=== PATIENT | male | born 1970 | race Caucasian/White ===

== ENCOUNTER 2016-12-24 10:00 | Emergency (ER) | payer OTHER, SELFPAY ==
[2016-12-24] MEDS ORDERED: Sodium Chloride 0.9% 10 ML Syringe FLUSH PRN (10:29)
[2016-12-24 10:49] VITALS: BP 111/63
--- NOTE | 2016-12-24 11:28 | PCM.CONS ---
<Rustam Ashton - Last Filed: 12/24/16 11:55> H&P History of Present Illness - History of Present Illness Initial Comments - Free Text/Narative: History of present illness: [46-year-old male who was working on his vehicle yesterday at about noon and suddenly developed palpitations. 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 Last evening he came in and was continuing to have palpitations and spoke with Dr. Beckman checked his pulse and determined that he was in A. fib. He had a high deductible and so it was suggested that he could go home and come back in the morning if he continued to have palpitations. The hope was that he would spontaneously convert but he did not and so presented here today for cardioversion. He's asymptomatic with this other than the palpitations in that he's not having any chest pain or shortness of breath or chest tightening.] Review of systems: As per history of present illness and below otherwise all systems reviewed and negative. Past medical history: As per history of present illness and as reviewed below otherwise noncontributory. Surgical history: As per history of present illness and as reviewed below otherwise noncontributory. Social history: No reported history of drug or alcohol abuse. Family history: As per history of present illness and as reviewed below otherwise noncontributory. Physical exam: HEENT: Atraumatic, normocephalic, pupils reactive, negative for conjunctival pallor or scleral icterus, mucous membranes moist, throat clear, neck supple, nontender, trachea midline. Lungs: Clear to auscultation, breath sounds equal bilaterally, chest nontender. Heart: S1S2, regular, negative for clicks, rubs, or JVD. Abdomen: Soft, nondistended, nontender. Negative for masses or hepatosplenomegaly. Negative for costovertebral tenderness. Pelvis: Stable nontender. Genitourinary: Deferred. Rectal: Deferred. Extremities: Atraumatic, negative for cords or calf pain. Neurovascular unremarkable. Neuro: Awake, alert, oriented. Cranial nerves II through XII unremarkable. Cerebellum unremarkable. Motor and sensory unremarkable throughout. Exam nonfocal. Diagnostics: [CBC basic metabolic panel and TSH were ordered on him in addition to an EKG demonstrating his A. fib with rapid response] Therapeutics: [Dr. Joseph was consulted and came in and did cardiovert him. ] Impression: [A. fib with rapid response] Plan: [Dr. Joseph is given him his discharge instructions.] Definitive disposition and diagnosis as appropriate pending reevaluation and review of above. - Related Data Allergies/Adverse Reactions: Allergies Allergy/AdvReac Type Severity Reaction Status Date / Time No Known Allergies Allergy Verified 12/24/16 10:17 Home Medications: Home Meds NK [No Known Home Meds] 12/24/16 [History] H&P Review of Systems - Review of Systems: Review Of Systems: ROS reveals no pertinent complaints other than HPI. Exam - Vital Signs Vital Signs: Last Vital Signs Temp 36.6 C 12/24/16 10:46 Pulse 116 H 12/24/16 10:46 Resp 16 12/24/16 10:23 BP 111/63 12/24/16 10:46 Pulse Ox 95 12/24/16 10:46 - Patient Data Lab Results Last 24 hrs: Laboratory Results - last 24 hr 12/24/16 12/24/16 12/24/16 Range/Units 10:30 10:32 10:32 WBC 7.9 (4.5-11.0) K/uL RBC 5.54 (4.30-5.90) M/uL Hgb 16.7 H (12.0-15.0) g/dL Hct 49.1 (40.0-54.0) % MCV 89 (80-98) fL MCH 30 (27-31) pg MCHC 34 (32-36) % Plt Count 247 (150-400) K/uL Neut % (Auto) 56 (36-66) % Lymph % (Auto) 29 (24-44) % Laurens % (Auto) 9 H (2-6) % Eos % (Auto) 4 (2-4) % Baso % (Auto) 2 H (0-1) % Sodium 141 (140-148) mmol/L Potassium 4.3 (3.6-5.2) mmol/L Chloride 107 (100-108) mmol/L Carbon Dioxide 29 (21-32) mmol/L Anion Gap 5.5 (5.0-14.0) mmol/L BUN 17 (7-18) mg/dL Creatinine 1.3 (0.8-1.3) mg/dL Est Cr Clr Drug Dosing 84.31 mL/min Estimated GFR (MDRD) 60 (>60) Glucose 96 (74-106) mg/dL Calcium 9.0 (8.5-10.1) mg/dL Troponin I (0.000-0.056) ng/mL Free T4 1.01 (0.76-1.46) ng/dL TSH, Ultra Sensitive (0.358-3.740) uIU/mL 12/24/16 12/24/16 Range/Units 10:32 10:32 WBC (4.5-11.0) K/uL RBC (4.30-5.90) M/uL Hgb (12.0-15.0) g/dL Hct (40.0-54.0) % MCV (80-98) fL MCH (27-31) pg MCHC (32-36) % Plt Count (150-400) K/uL Neut % (Auto) (36-66) % Lymph % (Auto) (24-44) % Laurens % (Auto) (2-6) % Eos % (Auto) (2-4) % Baso % (Auto) (0-1) % Sodium (140-148) mmol/L Potassium (3.6-5.2) mmol/L Chloride (100-108) mmol/L Carbon Dioxide (21-32) mmol/L Anion Gap (5.0-14.0) mmol/L BUN (7-18) mg/dL Creatinine (0.8-1.3) mg/dL Est Cr Clr Drug Dosing mL/min Estimated GFR (MDRD) (>60) Glucose (74-106) mg/dL Calcium (8.5-10.1) mg/dL Troponin I < 0.017 (0.000-0.056) ng/mL Free T4 (0.76-1.46) ng/dL TSH, Ultra Sensitive 3.951 H (0.358-3.740) uIU/mL Result Diagrams: 12/24/16 10:32 12/24/16 10:32 Consult PN Assessment/Plan My Orders last 24 hours: My Active Orders 12/24/16 10:18 EKG 12 Lead [EK] Stat 12/24/16 10:19 EKG Documentation Completion [RC] ASDIRECTED 12/24/16 10:29 Sodium Chloride 0.9% [Saline Flush] 10 ml FLUSH ASDIRECTED PRN Saline Lock Insert [OM.PC] Stat <Magdaleno Joseph - Last Filed: 12/25/16 17:33> H&P History of Present Illness - General Date of Service: 12/24/16 Source of Information: Patient, Family, Provider History Limitations: Reports: No Limitations Denies Pain Score (Numeric/FACES): 0 Past Medical History HEENT History: Reports: Impaired Vision Dermatologic History: Reports: Other (See Below) Other Dermatologic History: Cheat and back rash - Infectious Disease History Infectious Disease History: Reports: Chicken Pox Social & Family History - Family History Cardiac: Reports: Afib (father) - Tobacco Use Smoking Status *Q: Never Smoker Second Hand Smoke Exposure: No - Caffeine Use Caffeine Use: Reports: Coffee, Soda - Alcohol Use Alcohol Use History: No - Recreational Drug Use Recreational Drug Use: No H&P Review of Systems - Review of Systems: Review Of Systems: See Below Free Text/Narrative: A complete 12 point review of systems was obtained. Pertinent positives and negatives are noted in the history of present illness. All other systems were reviewed and were negative except as noted. Exam - Exam Exam: See Below - Vital Signs Vital Signs: Last Vital Signs Temp 36.6 C 12/24/16 10:46 Pulse 116 H 12/24/16 10:46 Resp 16 12/24/16 10:23 BP 111/63 12/24/16 10:46 Pulse Ox 95 12/24/16 10:46 Weight: 97.522 kg - Exam Quality Assessment: No: Supplemental Oxygen General: Alert, Oriented, Cooperative. No: Mild Distress HEENT: Conjunctiva Clear, Mucosa Moist & [place]. No: Scleral Icterus Neck: Supple, Trachea Midline. No: Lymphadenopathy, Thyromegaly Lungs: Clear to Auscultation, Normal Respiratory Effort Cardiovascular: Irregular Rhythm, Tachycardia. No: Systolic Murmur GI/Abdominal Exam: Normal Bowel Sounds, Soft, Non-Tender, No Distention Back Exam: Normal Inspection, Full Range of Motion Extremities: Normal Inspection, No Pedal Edema. No: Increased Warmth Peripheral Pulses: 2+: Dorsalis Pedis (L), Dorsalis Pedis (R) Skin: Warm, Dry, Intact Neuro Extensive - Mental Status: Alert, Oriented x3, Nl Response to Commands Neuro Extensive - Motor, Sensory, Reflexes: CN II-XII Intact. No: Dysarthria, Abnormal Motor, Tremor Psychiatric: Alert, Normal Affect - Patient Data Lab Results Last 24 hrs: Laboratory Results - last 24 hr 12/24/16 12/24/16 12/24/16 Range/Units 10:32 10:32 10:32 WBC 7.9 (4.5-11.0) K/uL RBC 5.54 (4.30-5.90) M/uL Hgb 16.7 H (12.0-15.0) g/dL Hct 49.1 (40.0-54.0) % MCV 89 (80-98) fL MCH 30 (27-31) pg MCHC 34 (32-36) % Plt Count 247 (150-400) K/uL Neut % (Auto) 56 (36-66) % Lymph % (Auto) 29 (24-44) % Laurens % (Auto) 9 H (2-6) % Eos % (Auto) 4 (2-4) % Baso % (Auto) 2 H (0-1) % Sodium 141 (140-148) mmol/L Potassium 4.3 (3.6-5.2) mmol/L Chloride 107 (100-108) mmol/L Carbon Dioxide 29 (21-32) mmol/L Anion Gap 5.5 (5.0-14.0) mmol/L BUN 17 (7-18) mg/dL Creatinine 1.3 (0.8-1.3) mg/dL Est Cr Clr Drug Dosing 84.31 mL/min Estimated GFR (MDRD) 60 (>60) Glucose 96 (74-106) mg/dL Calcium 9.0 (8.5-10.1) mg/dL Troponin I (0.000-0.056) ng/mL TSH, Ultra Sensitive 3.951 H (0.358-3.740) uIU/mL 12/24/16 Range/Units 10:32 WBC (4.5-11.0) K/uL RBC (4.30-5.90) M/uL Hgb (12.0-15.0) g/dL Hct (40.0-54.0) % MCV (80-98) fL MCH (27-31) pg MCHC (32-36) % Plt Count (150-400) K/uL Neut % (Auto) (36-66) % Lymph % (Auto) (24-44) % Laurens % (Auto) (2-6) % Eos % (Auto) (2-4) % Baso % (Auto) (0-1) % Sodium (140-148) mmol/L Potassium (3.6-5.2) mmol/L Chloride (100-108) mmol/L Carbon Dioxide (21-32) mmol/L Anion Gap (5.0-14.0) mmol/L BUN (7-18) mg/dL Creatinine (0.8-1.3) mg/dL Est Cr Clr Drug Dosing mL/min Estimated GFR (MDRD) (>60) Glucose (74-106) mg/dL Calcium (8.5-10.1) mg/dL Troponin I < 0.017 (0.000-0.056) ng/mL TSH, Ultra Sensitive (0.358-3.740) uIU/mL Result Diagrams: 12/24/16 10:32 12/24/16 10:32 Imaging Impressions Last 24 hrs: EKG - images personally reviewed - afib with HR 144, normal axis, no ischemic changes Consult PN Assessment/Plan (1) Atrial fibrillation with rapid ventricular response SNOMED Code(s): 703705380593975 Code(s): I48.91 - UNSPECIFIED ATRIAL FIBRILLATION Problem List Initiated/Reviewed/Updated: Yes My Orders last 24 hours: My Active Orders 12/24/16 11:23 T4 FREE [CHEM] Routine Plan: Patient presented with paroxysmal atrial fibrillation with rapid ventricular response. This was his first episode. No obvious cause based on history or laboratory studies. He was cardioverted in the emergency room and returned to normal sinus rhythm. Echocardiogram as an outpatient as planned. He will be following up with primary care. Magdaleno Joseph M.D. Requesting Provider: Dr Ashton Date Consult Requested: 12/24/16 Reason for Consult: afib with RVR Patient History Reviewed: Yes Admission H&P Reviewed: No Notified Requestor: Yes Time Spent (in minutes): 45
[2016-12-24] MEDS ORDERED: Propofol 200 MG/20 ML SDV ONE (11:29)
--- NOTE | 2016-12-24 11:30 | PCM.PRNOTE ---
- Free Text/Narrative Note: Date of service: 12/24/2016 Proposed procedure: Synchronized cardioversion Preprocedure diagnosis: Atrial fibrillation with rapid ventricular response Post procedure diagnosis: Atrial fibrillation with rapid ventricular response Indication for procedure: Khanh was evaluated today regarding atrial fibrillation/atrial flutter with symptoms and/or rapid ventricular response. Synchronized cardioversion was recommended as a primary treatment with onset of symptos <24 hours ago. Description of the procedure: [facility] is currently [facility]. We have reviewed the potential risks of electrical cardioversion including but not limited to: Superficial skin valverde, ineffective treatment, other arrhythmias, reaction to anesthesia medications or potentially asystole. The benefits of the procedure have also been reviewed. At this time the patient wishes to proceed with electrical cardioversion. All necessary pre-procedure information and paperwork has been provided and completed, respectively. The patient was connected to cardioversion pads and monitoring equipment per protocol. Prior to the procedure, a timeout was held with nursing and anesthesia present to confirm the right patient and right procedure. Once appropriate anesthesia was applied the machine was charged to 150 Joules and an electrical shock was applied. The patient was successfully converted to normal sinus rhythm and this was confirmed with a post procedure EKG. They will remain in their current location until anesthesia has dissipated and the patient is more awake and alert. They will then be discharged to home once medically stable. Anticoagulation should be continued for at least one month post cardioversion. There were no immediate complications noted from the procedure. Magdaleno Joseph M.D.
--- NOTE | 2017-01-21 08:54 | ER ---
DATE OF SERVICE: 12/24/2016 HISTORY: This is a 46-year-old male, who had presented to actually just to the manager front to talk to his and was found to be in AFib. Dr. Beckman spoke to him out in the registration area and because of their high deductible they did not want to be seen in the ER, but just on exam was noted to be in AFib. Dr. Beckman suggested they go home and then return in the morning if he had not spontaneously converted. He just went into AFib and so the 72-hour window was opened to us to have this plan. He presented to the ER in the morning still in AFib with a rapid response and was asymptomatic. No chest pain or shortness of breath, and so Dr. Joseph was consulted to manage this patient in the ER setting. PAST MEDICAL HISTORY: Outlined in his old records. PAST SURGICAL HISTORY: Outlined in his old records. REVIEW OF SYSTEMS: Otherwise negative other than that noted in the HPI. PHYSICAL EXAMINATION: GENERAL: He was alert, oriented, in no acute distress. HEENT: Unremarkable. NECK: Supple. CHEST: Clear. HEART: Irregular rate and rhythm with a tachy response. ABDOMEN: Soft, nontender. EXTREMITIES: Free of cyanosis, clubbing, or edema. NEUROLOGICAL: He is intact and nonfocal. COURSE IN THE EMERGENCY ROOM: The patient was seen by Dr. Joseph in consultation, who converted him electrically and he was discharged home with echocardiogram follow up. ASSESSMENT: Atrial fibrillation with rapid response. PLAN: Once again, Dr. Joseph saw him and converted him electrically and he is to follow up for an electrocardiogram. Rustam Ashton MD /[id number]
== END 2016-12-24 12:10 | disposition home or self-care (01) ==
LOC: JP.ED 10:00
DX: I48.0 Paroxysmal atrial fibrillation (principal)
CPT/HCPCS: 36415; 80048; 84439; 84443; 84484; 85025; 92960; 93005; 99284; J2704; J7050

== ENCOUNTER 2017-01-22 21:08 | Emergency (ER) | payer OTHER, SELFPAY ==
[2017-01-22 22:42] VITALS: BP 134/82
[2017-01-22] MEDS ORDERED: Ampicillin/Sulbactam Na 3 GM in Sodium Chloride 0.9% 100 ML IV ONE (22:59)
--- NOTE | 2017-01-22 23:44 | EDM.PDOC ---
[id number]: R KNEE REDNESS Time Seen by Provider: 01/22/17 22:55 Source of Information: Reports: Patient, Family History Limitations: Reports: No Limitations - History of Present Illness INITIAL COMMENTS - FREE TEXT/NARRATIVE: 47-year-old male with increasing pain and erythema of his right knee. Symptoms have been occurring over the last several days. He had a fever yesterday. No nausea or vomiting, no shortness of breath or cough. Onset: Gradual (Over the past 2 days) Location: Reports: Lower Extremity, Right Severity: Moderate Associated Symptoms: Reports: Fever/Chills Right Knee Pain Score (Numeric/FACES): 7 - Related Data Allergies Allergy/AdvReac Type Severity Reaction Status Date / Time No Known Allergies Allergy Verified 12/24/16 10:17 Home Meds: Home Meds NK [No Known Home Meds] 12/24/16 [History] Past Medical History HEENT History: Reports: Impaired Vision Cardiovascular History: Reports: Arrhythmia Other Cardiovascular History: Was cardioverted for atrial fib. in past. Dermatologic History: Reports: Other (See Below) Other Dermatologic History: Cheat and back rash - Infectious Disease History Infectious Disease History: Reports: Chicken Pox Social & Family History - Family History Family Medical History: Noncontributory Cardiac: Reports: Afib - Tobacco Use Smoking Status *Q: Never Smoker Second Hand Smoke Exposure: No - Caffeine Use Caffeine Use: Reports: Coffee - Recreational Drug Use Recreational Drug Use: No ED ROS GENERAL - Review of Systems Review Of Systems: See Below Constitutional: Reports: Fever, Chills, Malaise HEENT: Reports: No Symptoms Respiratory: Reports: No Symptoms Cardiovascular: Reports: No Symptoms GI/Abdominal: Reports: No Symptoms Musculoskeletal: Reports: Leg Pain Skin: Reports: Erythema Neurological: Reports: No Symptoms Psychiatric: Reports: No Symptoms ED EXAM, SKIN/RASH Exam: See Below Exam Limited By: No Limitations General Appearance: Alert, No Apparent Distress Respiratory/Chest: No Respiratory Distress Extremities: Other (Exam is otherwise limited to the right lower extremity. The patient has an area of erythema, slight swelling and warmth over the entire anterior aspect of the right knee extending onto the lower leg. There is no fluctuance. No effusion.) Course - Vital Signs Last Recorded V/S: Last Vital Signs Temp 98.8 F 01/22/17 22:40 Pulse 94 01/22/17 22:40 Resp 16 01/22/17 22:40 BP 134/82 01/22/17 22:40 Pulse Ox 99 01/22/17 22:40 - Orders/Labs/Meds Meds: Medications Discontinued Medications Generic Name Dose Route Start Last Admin Trade Name Sai PRN Reason Stop Dose Admin Ampicillin Sodium/Sulbactam 100 mls @ 200 mls/hr 01/22/17 22:59 01/22/17 23: 48 Sodium 3 gm/ Sodium Chloride IV 01/22/17 23:28 200 mls/hr ONETIME ONE Administration - Re-Assessments/Exams Free Text/Narrative Re-Assessment/Exam: 01/22/17 23:42 Patient has cellulitis of the right lower extremity. He was given 3 g Unasyn IV and will continue on Augmentin 875 twice a day for the next 7 days. I strongly encouraged him to recheck in the next 24-48 hours if worsening rather than improving. Departure - Departure Time of Disposition: 00:22 Disposition: Home, Self-Care 01 Condition: Good Clinical Impression: Cellulitis of knee, right - Discharge Information Instructions: Cellulitis, Adult, [id number] Referrals: Oscar Kaba PA-C [Primary Care Provider] - Forms: ED Department Discharge Care Plan Goals: Take antibiotic twice daily with food as directed. Warm compresses to the infected area may help. Increase activity as tolerated and recheck any time in the next several days if not improving satisfactorily.
== END 2017-01-23 00:13 | disposition home or self-care (01) ==
LOC: JP.ED 21:08
DX: L03.115 Cellulitis of right lower limb (principal); I48.91 Unspecified atrial fibrillation
CPT/HCPCS: 96365; 99283; J0295; J7030

== ENCOUNTER 2017-02-07 17:35 | Emergency (ER) | payer OTHER, SELFPAY ==
[2017-02-07 17:47] VITALS: BP 129/89
--- NOTE | 2017-02-07 18:37 | EDM.PDOC ---
ED HPI GENERAL MEDICAL PROBLEM - General Chief Complaint: Flank Pain Stated Complaint: L FLANK PAIN Time Seen by Provider: 02/07/17 18:00 Source of Information: Reports: Patient History Limitations: Reports: No Limitations - History of Present Illness INITIAL COMMENTS - FREE TEXT/NARRATIVE: 47-year-old male that developed left-sided abdominal pain which rapidly progressed to left flank pain 2 hours ago. He was very intense, he couldn't get comfortable and came to the emergency room. No significant nausea or vomiting, no dysuria. On arrival to the emergency room the pain seemed to resolve after urinating. A UA was obtained. He now feels normal. Onset: Sudden Duration: Hour(s): (2 hours) Left Flank Pain Score (Numeric/FACES): 6 - Related Data Allergies Allergy/AdvReac Type Severity Reaction Status Date / Time No Known Allergies Allergy Verified 12/24/16 10:17 Home Meds: Home Meds Aspirin 81 mg PO DAILY 02/07/17 [History] Past Medical History HEENT History: Reports: Impaired Vision Cardiovascular History: Reports: Afib, Arrhythmia Other Cardiovascular History: Was cardioverted for atrial fib. in past. Dermatologic History: Reports: Other (See Below) Other Dermatologic History: Cheat and back rash - Infectious Disease History Infectious Disease History: Reports: Chicken Pox Social & Family History - Family History Family Medical History: Noncontributory Cardiac: Reports: Afib - Tobacco Use Smoking Status *Q: Never Smoker Second Hand Smoke Exposure: No - Caffeine Use Caffeine Use: Reports: Coffee - Recreational Drug Use Recreational Drug Use: No ED ROS GENERAL - Review of Systems Review Of Systems: See Below Constitutional: Denies: Fever, Chills HEENT: Reports: No Symptoms Respiratory: Reports: No Symptoms GI/Abdominal: Reports: Abdominal Pain (Left anterior abdominal pain which has resolved) : Reports: Flank Pain Musculoskeletal: Reports: Other (Still has some mild right knee discomfort from a recent cellulitis) Skin: Reports: Erythema (Slight erythema over the anterior right knee) ED EXAM, RENAL/ - Physical Exam Exam: See Below Exam Limited By: No Limitations General Appearance: Alert, No Apparent Distress Respiratory/Chest: No Respiratory Distress Cardiovascular: Regular Rate, Rhythm Extremities: Redness (Slight redness over the anterior right knee, minimal swelling) Neurological: Alert, Oriented Psychiatric: Normal Affect, Normal Mood Course - Vital Signs Last Recorded V/S: Last Vital Signs Temp 97.2 F 02/07/17 17:42 Pulse 64 02/07/17 17:42 Resp 16 02/07/17 17:42 BP 129/89 02/07/17 17:42 Pulse Ox 98 02/07/17 17:42 - Orders/Labs/Meds Labs: Laboratory Tests 02/07/17 Range/Units 18:10 Urine Color Yellow Urine Appearance Clear Urine pH 5.0 (4.5-8.0) Ur Specific [place] 1.015 (1.008-1.030) Urine Protein Negative (NEGATIVE) mg/dL Urine Glucose (UA) Normal (NEGATIVE) mg/dL Urine Ketones Negative (NEGATIVE) mg/dL Urine Occult Blood Large (NEGATIVE) Urine Nitrite Negative (NEGAITVE) Urine Bilirubin Negative (NEGATIVE) Urine Urobilinogen Normal (NORMAL) mg/dL Ur Leukocyte Esterase Negative (NEGATIVE) Urine RBC 10-20 H (0-5) Urine WBC 0-5 (0-5) Ur Epithelial Cells Few Amorphous Sediment Few Urine Bacteria Rare Urine Mucus Few - Re-Assessments/Exams Free Text/Narrative Re-Assessment/Exam: 02/07/17 18:35 A UA showed 10-20 RBCs per high-power field. His symptoms did not recur. No further workup is done as this is very likely a passed kidney stone. He is going to take a screen home and screen his urine, and return if symptoms recur and we will progress with a CT scan. Departure - Departure Time of Disposition: 18:45 Disposition: Home, Self-Care 01 Condition: Good Clinical Impression: Ureteric colic - Discharge Information Instructions: Kidney Stones, [id number] Referrals: Oscar Kaba PA-C [Primary Care Provider] - Care Plan Goals: Stay hydrated, and return anytime if symptoms recur and you feel you need further evaluation.
== END 2017-02-07 18:45 | disposition home or self-care (01) ==
LOC: JP.ED 17:35
DX: N23 Unspecified renal colic (principal); L53.9 Erythematous condition, unspecified; I48.91 Unspecified atrial fibrillation; Z79.82 Long term (current) use of aspirin
CPT/HCPCS: 81001; 99284

== ENCOUNTER 2021-11-29 09:42 | Emergency (ER) | payer OTHER, SELFPAY ==
[2021-11-29 10:01] VITALS: PULSE 85
[2021-11-29] MEDS ORDERED: Sodium Chloride 0.9% 10 ML Syringe FLUSH PRN (10:31)
[2021-11-29] MEDS ORDERED: Diltiazem 25 MG/5 ML SDV IVPUSH ONE (10:33)
[2021-11-29] MEDS ORDERED: Sodium Chloride 0.9% 1,000 ML IV SCH (10:45)
[2021-11-29 11:13] VITALS: BP 105/70
[2021-11-29] MEDS ORDERED: Propofol 200 MG/20 ML SDV ONE (11:13)
[2021-11-29 11:21] LABS: ESTIMATED GFR 67 mL/min (>60); TROPONIN I HIGH SENSITIVITY 11.5 pg/mL (<=60.3)
== END 2021-11-29 13:21 | disposition home or self-care (01) ==
LOC: JP.ED 09:42
DX: I48.0 Paroxysmal atrial fibrillation (principal); Z79.82 Long term (current) use of aspirin
CPT/HCPCS: 36415; 80053; 84484; 85025; 92960; 93005; 93010; 96374; 99283; 99285-25; J2704; J3490; J7030

== ENCOUNTER 2022-10-04 10:26 | Emergency (ER) | payer OTHER ==
[2022-10-04] MEDS ORDERED: Sodium Chloride 0.9% 10 ML Syringe FLUSH PRN (10:58)
[2022-10-04] MEDS ORDERED: Diltiazem 25 MG/5 ML SDV IVPUSH ONE (10:58)
[2022-10-04] MEDS ORDERED: Sodium Chloride 0.9% 1,000 ML IV SCH (11:00)
[2022-10-04 11:33] LABS: ESTIMATED GFR 82 mL/min (>60); TROPONIN I HIGH SENSITIVITY 11.5 pg/mL (<=60.3)
[2022-10-04] MEDS ORDERED: Propofol 200 MG/20 ML SDV ONE (11:45)
[2022-10-04 12:43] VITALS: BP 100/73; PULSE 85
== END 2022-10-04 12:53 | disposition home or self-care (01) ==
LOC: JP.ED 10:26
DX: I48.0 Paroxysmal atrial fibrillation (principal); Z87.891 Personal history of nicotine dependence
CPT/HCPCS: 36415; 80053; 84484; 85025; 92960; 93005; 99284; J2704; J3490; J7030

== ENCOUNTER 2022-11-19 05:13 | Emergency (ER) | payer OTHER ==
[2022-11-19] MEDS ORDERED: Ketorolac 30 MG/ML SDV IVPUSH ONE (06:01)
[2022-11-19 06:04] LABS: APPEARANCE,URINE CLEAR (CLEAR); BILIRUBIN,URINE NEGATIVE (NEGATIVE); COLOR,URINE YELLOW (YELLOW); GLUCOSE,URINE NEGATIVE (NEGATIVE); KETONES,URINE NEGATIVE (NEGATIVE); LEUKOCYTE ESTERASE,URINE NEGATIVE (NEGATIVE); NITRITE,URINE NEGATIVE (NEGATIVE); OCCULT BLOOD,URINE TRACE-LYSED (NEGATIVE); PH,URINE 5.5 (5.0-8.0); PROTEIN,URINE NEGATIVE (NEGATIVE); UROBILINOGEN,URINE 0.2 EU/dL (0.2-1.0)
[2022-11-19] MEDS ORDERED: Sodium Chloride 0.9% 10 ML Syringe FLUSH PRN (06:04)
[2022-11-19 06:05] LABS: AMORPHOUS SEDIMENT,URINE NOT SEEN; BACTERIA,URINE RARE; EPITHELIAL CELLS,URINE NOT SEEN; MUCUS,URINE NOT SEEN; RBC,URINE 0-5 (0-5); WBC,URINE 0-5 (0-5)
[2022-11-19 06:40] VITALS: BP 122/82; PULSE 77
== END 2022-11-19 06:15 | disposition home or self-care (01) ==
LOC: JP.ED 05:13
DX: R10.9 Unspecified abdominal pain (principal); I48.91 Unspecified atrial fibrillation; Z87.891 Personal history of nicotine dependence; Z79.899 Other long term (current) drug therapy
CPT/HCPCS: 81001; 96374; 99284; J1885

== ENCOUNTER 2024-12-18 11:43 | Emergency (ER) | payer OTHER ==
[2024-12-18 12:08] LABS: BASOPHILS ABSOLUTE AUTO 0.09 K/uL (0.00-0.10); BASOPHILS PERCENT AUTO 1.3 % (0.1-1.3); EOSINOPHILS ABSOLUTE AUTO 0.32 K/uL (0.00-0.40); EOSINOPHILS PERCENT AUTO 4.8 % (0.0-5.4); IMMATURE GRAN ABSOLUTE AUTO 0.04 K/uL (0.00-0.23); IMMATURE GRAN PERCENT AUTO 0.6 % (0.0-0.7); LYMPHOCYTES ABSOLUTE AUTO 1.90 K/uL (0.8-3.3); LYMPHOCYTES PERCENT AUTO 28.4 % (11.4-47.7); MONOCYTES ABSOLUTE AUTO 0.60 K/uL (0.20-0.90); MONOCYTES PERCENT AUTO 9.0 % (3.3-12.6); NEUTROPHILS ABSOLUTE AUTO 3.74 K/uL (1.0-7.6); NEUTROPHILS PERCENT AUTO 55.9 % (40.0-78.1); PLATELET COUNT,PLT 213 K/uL (130-375); RED BLOOD CELL COUNT 5.16 M/uL (4.14-5.76); WHITE BLOOD CELL COUNT,WBC 6.7 K/uL (3.2-11.0)
[2024-12-18] MEDS: Diltiazem 25 MG/5 ML SDV IVPUSH ONE (12:16)
[2024-12-18] MEDS: Sodium Chloride 0.9% 10 ML Syringe FLUSH PRN (12:20)
[2024-12-18 12:31] LABS: BLOOD UREA NITROGEN,BUN 19 mg/dL (7-18); CARBON DIOXIDE,CO2 29 mmol/L (21-32); CHLORIDE,CL 108 mmol/L (100-108); CREATININE 1.2 mg/dL (0.8-1.3); ESTIMATED GFR 73 mL/min (>60); GLUCOSE RANDOM 97 mg/dL (74-106); POTASSIUM,K 4.7 mmol/L (3.6-5.2); SODIUM,NA 141 mmol/L (140-148); TROPONIN I HIGH SENSITIVITY 8.2 pg/mL (<=60.3)
[2024-12-18 12:50] VITALS: BP 111/81; PULSE 75
[2024-12-18] MEDS ORDERED: Propofol 200 MG/20 ML SDV ONE (13:08)
== END 2024-12-18 14:01 | disposition home or self-care (01) ==
LOC: JP.ED 11:43
DX: I48.0 Paroxysmal atrial fibrillation (principal); E86.0 Dehydration; Z79.82 Long term (current) use of aspirin
CPT/HCPCS: 00410; 36415; 80048; 83735; 84484; 85025; 92960; 93005; 96361; 96374; 99152; 99153; 99285; J2704; J3490; J7030; 93010; 99284